=== PATIENT | male | born 1940 | race Caucasian/White ===

== ENCOUNTER 2018-09-08 19:25 | Inpatient (IN) | payer MEDICARE ==
[~2018-09-08] VITALS: Ht 175.3 cm; Wt 65.8 kg
--- NOTE | 2018-09-08 19:29 | NUR ---
Pt bib private ambulance from [facility] for medical clearance and admission into MHU. Pt on 5150 hold gravely disabled. AAOX3, however thinks the president is talking to him. Safety precautions implemented. 1:1 sitter (security) at bedside for safety. Pt belongings placed in nursing station.
--- NOTE | 2018-09-08 20:17 | NUR ---
Pt is medically cleared by YUNIOR Hope MD.
--- NOTE | 2018-09-08 20:31 | NUR ---
Pt. admitted to MHU, under care of Dr. Singh/Franko Patel NP. Diagnosis: Psychosis. Belongs List completed. MRSA swab done.
[2018-09-08 21:10] VITALS: BP 136/70
[2018-09-08] MEDS ORDERED: MAGNESIUM HYDROXIDE 30 ML LIQUID UDC PO PRN (21:45)
[2018-09-08] MEDS ORDERED: MAG HYDROX/AL HYDROX/SIMETH 30 ML LIQUID UDC PO PRN (21:45)
[2018-09-08] MEDS ORDERED: OLANZAPINE 10 MG VIAL IM STA (21:54)
--- NOTE | 2018-09-09 00:41 | NUR ---
ADMISSION NOTE:HAVING 78 YRS OLD MALE WAS ADMITTED TO MHU AFTER MEDICALLY CLEARED FROM ER.HE IS ON 72 HOLD FOR GD-PARANOID DELUSION THOUGHTS THAT PEOPLE WERE TRYING TO KILL HIM AND PRESIDENT VANIA HADCALLED HIM AND WAS SENDING SOMEONE TO PICK HIM UP.PT HAS BEEN OUT HIDING FOR THE PAST 4-5 DAYS AND WAS FOUND SLEEPING IN THE LOBBY OF [facility].A/O X 1-2.SL.SHOSHONE-PAIUTE AND SL.CLOUDY ON BOTH EYES BUT PT DECLINED HIS MEDICALHX..ANXIOUS, RESTLESS,SUSPICIOUS AND WANTED TO LEAVE TO GO BACK TO [facility] BECAUSE HE HAS THE BED THERE TO SLEEP AND HE NEEDS TO GO TO THE [place] IN THE MORNING TO FLY.PRESLATISHA CARO IS WAITING TO MEET HIM THEN.HE STARTED PACING/WANDERING INTO THE THE NURSING STATION/REPORT ROOM LOOKING FOR THE SATELLITE TO COMMUNICATE WITH PRESIDENT CARO AND TO GET HIS CLOTHES SO HE CAN LEAVE.SECURITY WAS CALLED AND NOTIFIED REGARDING OF ADMISSION AND HIS BEHAVIOR WITH NEW ORDERS-CARRIED OUT.IM MED WAS GIVEN X1 ORDER.ABLE TO CALM DOWN BUT STILL TALKING ABOUT LEAVING TO MEET PRESIDENT CARO.HAYLEY.REALITYORIENTATION, REDIRECTION AND SETTING LIMITS NEEDED WILL CONTINUE TO MONITOR FOR ANY CHANGES.
[2018-09-09] MEDS: LORAZEPAM 0.5 MG TABLET PO PRN ×3 (04:29→13:17)
--- NOTE | 2018-09-09 04:34 | NUR ---
GPS: PATIENT IS VERY AGITATED. ATIVAN 0.5 MG PO GIVEN.
[2018-09-09 07:30] VITALS: BP 113/64
[2018-09-09] MEDS: ACETAMINOPHEN 325 MG TABLET PO PRN ×2 (08:28→16:16)
--- NOTE | 2018-09-09 09:29 | NUR ---
Reached out to Arben Avila, who is the patients son. Wanted to follow up on vaccinations. Waiting for return to call,
[2018-09-09] MEDS: BENZTROPINE MESYLATE 0.5 MG TABLET PO SCH ×2 (11:18→16:14)
[2018-09-09] MEDS: risperiDONE-M 0.5 MG TAB.RAPDIS PO SCH ×2 (11:18→16:14)
[2018-09-09] MEDS: DIVALPROEX SPRINKLE 125 MG CAP.SPRINK PO SCH ×2 (12:07→16:14)
--- NOTE | 2018-09-09 13:39 | NUR ---
Patient is still presenting with delusions and hallucinations. Patient continues to verbalizes initiative to meet with President Celso. Patient intermittently sleeps and garbles during his sleep. patient denies intentions of being a danger to others and self. Patient continues to show anxiety and paranoid delusions of conspiracy. Will continue to monitor the patient closely.
--- NOTE | 2018-09-09 14:31 | NUR ---
GPS: Nursing Notes: Thought Disorder: Patient is awake and responding to his name, resistant with nursing care, redirected and reoriented during shift to reality, needs a lot of prompting with ADL's, resistant with nursing care, believes that he is a bezel cutter of President Dameon Houston [employer], believes that Dameon Houston is going to kill him, episodes of mumbling to self and shaking and saluting with his hand to the air with his eyes closed, responding to internal stimuli, disoriented, disorganized, stating "I want to go home....My car is outside... I have millions of dollars in my backpack..", unkempt appearance, refusing to shower, poor anger management, poor impulse control, unable to formulate a viable plan for self care, continue with treatment plan.
[2018-09-09 15:18] VITALS: BP 92/56
--- NOTE | 2018-09-09 18:02 | NUR ---
GPS: Patient has a 1:1 sitter at beside due to DTS and DTO. Patient has had delusions and presenting with auditory and visual hallucinations. Patient did not sleep the night before and was able to get some sleep through out the shift. Patient is compliant with medical treatment. patient is continent and able to go to the bathroom at libery. Patient has been oriented to the unit but still demonstrates confusion. Will continue to monitor closely and endorse plan of care to shift coordinator.
[2018-09-09] MEDS: TEMAZEPAM 7.5 MG CAPSULE PO PRN (21:03)
[2018-09-09 22:26] VITALS: BP 120/71
[2018-09-10 07:48] LABS: BASOPHILS % (AUTO) 0.2 % (0.0-2.0); EOSINOPHILS # (AUTO) 0.3 K/uL (0.0-0.7); EOSINOPHILS % (AUTO) 3.5 % (0.0-7.0); HEMATOCRIT 41.3 % (36.7-47.1); HEMOGLOBIN 13.5 g/dL (12.5-16.3); LYMPHOCYTES # (AUTO) 1.5 K/uL (20.0-40.0); LYMPHOCYTES % (AUTO) 21.1 % (20.5-51.5); MEAN CORPUSCULAR HEMOGLOBIN 27.1 uug (23.8-33.4); MEAN CORPUSCULAR HGB CONC 33 g/dL (32.5-36.3); MEAN CORPUSCULAR VOLUME 82.7 fL (73.0-96.2); MONOCYTES # (AUTO) 0.6 K/uL (2.0-10.0); MONOCYTES % (AUTO) 8.2 % (0.0-11.0); NEUTROPHILS # (AUTO) 4.9 K/uL (1.8-8.9); PLATELET COUNT (AUTO) 252 K/uL (152-348); RED BLOOD CELL COUNT(AUTO) 4.99 MIL/uL (4.06-5.63); WHITE BLOOD COUNT (AUTO) 7.3 K/uL (3.6-10.2)
[2018-09-10 08:02] VITALS: BP 117/60
[2018-09-10 08:09] LABS: THYROID STIMULATING HORMONE 0.721 mIU/mL (0.358-3.740)
[2018-09-10] MEDS: ACETAMINOPHEN 325 MG TABLET PO PRN ×2 (08:14→17:18)
[2018-09-10] MEDS: LORAZEPAM 0.5 MG TABLET PO PRN (08:14)
[2018-09-10 08:28] LABS: ALANINE AMINOTRANSFERASE 31 U/L (16-63); ALKALINE PHOSPHATASE 61 U/L (50-136); ASPARTATE AMINOTRANSFERASE 46 U/L (15-37); BILIRUBIN,TOTAL 0.6 mg/dL (0.2-1.0); CARBON DIOXIDE 30 mmol/L (21-32); CHLORIDE 101 mmol/L (98-107); CREATININE 0.8 mg/dL (0.6-1.3); GLUCOSE 113 mg/dL (74-106); MAGNESIUM 2.1 mg/dL (1.8-2.4); POTASSIUM 4.5 mmol/L (3.5-5.1); TOTAL PROTEIN, SERUM 7.4 g/dL (6.4-8.2); UREA NITROGEN, BLOOD 16 mg/dL (7-18)
[2018-09-10] MEDS: DIVALPROEX SPRINKLE 125 MG CAP.SPRINK PO SCH ×3 (08:31→17:17)
[2018-09-10] MEDS: risperiDONE-M 0.5 MG TAB.RAPDIS PO SCH ×3 (08:31→17:17)
[2018-09-10] MEDS: BENZTROPINE MESYLATE 0.5 MG TABLET PO SCH ×2 (08:31→17:17)
[2018-09-10 15:29] VITALS: BP 90/51
--- NOTE | 2018-09-10 15:50 | NUR ---
Initial Discharge Plan: Patient is a 78 year old male who currently lives alone in his home [[facility] [id number]]. Per patient he would like to return to his home when he is ready. However, according to patient son, Sven [[phone]], it is "unsafe" for patient to return as he believes patient is unable to take care of himself. According to Sven, patient kitchen is under 3-4 feet of water and growing mold because patient refuses to have the leaky pipe fixed. Sven also reports that patient wanders into his neighbors homes. Patient may need SNF placement when ready to discharge. foundry worker will continue to collaborate with patient, patient son, and MD on a safe and proper discharge.
--- NOTE | 2018-09-10 16:51 | NUR ---
APS REPORT: farmworker grain completed and submitted an APS report to [facility] [[phone]] for self-neglect after receiving information that patient was living in hazardous and unsafe living conditions. Report was made to Tomas Roe and faxed [[phone]] to agency. Successful fax return and copy of report have been placed in patient chart.
[2018-09-10 20:00] VITALS: BP 136/79
[2018-09-10] MEDS: ATORVASTATIN 10 MG TABLET PO SCH (20:03)
[2018-09-10] MEDS: TEMAZEPAM 7.5 MG CAPSULE PO PRN (20:25)
--- NOTE | 2018-09-10 20:46 | NUR ---
Rec't pt in his room, sitting up in chair with 1:1 sitter at side for safety. Verbally responsive. Continues to have delusions of Trump coming to pick him up. Took all due meds with assist. Taking PO fluids well. No s/s of acute distress. All safety precautions in place at this time. Will continue to monitor.
--- NOTE | 2018-09-11 06:28 | NUR ---
Pt in bed awake. Slept x6.15 hrs during shift. Had x1 episode of walking with assist to the his doorway and verbalizing that he only works for Trump and that Trump is coming to pick him up. Reoriented to reality as needed. 1:1 sitter at bedside. Offered shower but became agitated during attempt. All safety precautions in place at this time. Will endorse to oncoming shift.
[2018-09-11 07:30] VITALS: BP 130/63
[2018-09-11] MEDS: risperiDONE-M 0.5 MG TAB.RAPDIS PO SCH ×3 (08:03→16:04)
[2018-09-11] MEDS: DIVALPROEX SPRINKLE 125 MG CAP.SPRINK PO SCH ×3 (08:03→16:04)
[2018-09-11] MEDS: BENZTROPINE MESYLATE 0.5 MG TABLET PO SCH ×2 (08:03→16:04)
[2018-09-11] MEDS: LORAZEPAM 0.5 MG TABLET PO PRN ×3 (08:05→21:12)
[2018-09-11 16:00] VITALS: BP 123/69
[2018-09-11 20:33] VITALS: BP 118/61
[2018-09-11] MEDS: ATORVASTATIN 10 MG TABLET PO SCH (21:12)
--- NOTE | 2018-09-12 03:22 | NUR ---
Patient first observed in his room, sitting up in chair with 1:1 sitter at side for safety. Verbally responsive. Continues to have delusions requires continuous redirection, appeared paranoid. Patient compliant with medication with staff assist. Taking PO fluids well. No s/s of acute distress. All safety precautions in place at this time. Will continue to monitor as well as follow plan of care.
[2018-09-12 07:30] VITALS: BP 117/53
[2018-09-12] MEDS: DIVALPROEX SPRINKLE 125 MG CAP.SPRINK PO SCH ×3 (09:06→17:11)
[2018-09-12] MEDS: risperiDONE-M 0.5 MG TAB.RAPDIS PO SCH ×3 (09:07→17:12)
[2018-09-12] MEDS: BENZTROPINE MESYLATE 0.5 MG TABLET PO SCH ×2 (09:09→17:11)
--- NOTE | 2018-09-12 12:30 | NUR ---
Gps/Senior Principal- Remains with 1:1 Nursing supervision for safety.Complaint with routine medications administered with apple sauce. Son was in to visit during lunch time , but noted refused to leave even after visiting hours over.Acoustical Tile Carpenters Supervisor was called and informed, hesitant to leave but was able to comply after.
[2018-09-12 16:00] VITALS: BP 108/55
[2018-09-12 20:04] VITALS: BP 122/65
[2018-09-12] MEDS: LORAZEPAM 0.5 MG TABLET PO PRN (20:14)
[2018-09-12] MEDS: ATORVASTATIN 10 MG TABLET PO SCH (20:15)
[2018-09-13] MEDS: TEMAZEPAM 7.5 MG CAPSULE PO PRN (00:33)
[2018-09-13 07:08] LABS: BASOPHILS % (AUTO) 0.3 % (0.0-2.0); EOSINOPHILS # (AUTO) 0.3 K/uL (0.0-0.7); EOSINOPHILS % (AUTO) 5.5 % (0.0-7.0); HEMATOCRIT 37.8 % (36.7-47.1); HEMOGLOBIN 12.3 g/dL (12.5-16.3); LYMPHOCYTES # (AUTO) 1.4 K/uL (20.0-40.0); LYMPHOCYTES % (AUTO) 25.2 % (20.5-51.5); MEAN CORPUSCULAR HGB CONC 33 g/dL (32.5-36.3); MEAN CORPUSCULAR VOLUME 82.7 fL (73.0-96.2); MONOCYTES # (AUTO) 0.5 K/uL (2.0-10.0); MONOCYTES % (AUTO) 8.9 % (0.0-11.0); NEUTROPHILS # (AUTO) 3.4 K/uL (1.8-8.9); NEUTROPHILS % (AUTO) 60.1 % (38.5-71.5); PLATELET COUNT (AUTO) 243 K/uL (152-348); RED BLOOD CELL COUNT(AUTO) 4.57 MIL/uL (4.06-5.63); WHITE BLOOD COUNT (AUTO) 5.6 K/uL (3.6-10.2)
[2018-09-13 07:28] LABS: ALANINE AMINOTRANSFERASE 21 U/L (16-63); ALKALINE PHOSPHATASE 56 U/L (50-136); ASPARTATE AMINOTRANSFERASE 16 U/L (15-37); BILIRUBIN,TOTAL 0.6 mg/dL (0.2-1.0); CARBON DIOXIDE 29 mmol/L (21-32); CHLORIDE 101 mmol/L (98-107); CREATININE 0.8 mg/dL (0.6-1.3); GLUCOSE 101 mg/dL (74-106); POTASSIUM 4.4 mmol/L (3.5-5.1); TOTAL PROTEIN, SERUM 6.8 g/dL (6.4-8.2); UREA NITROGEN, BLOOD 18 mg/dL (7-18)
[2018-09-13 07:30] VITALS: BP 113/53
[2018-09-13 07:44] LABS: VALPROIC ACID 29 ug/mL (50-100)
[2018-09-13] MEDS: DIVALPROEX SPRINKLE 125 MG CAP.SPRINK PO SCH ×4 (08:00→20:33)
[2018-09-13] MEDS: BENZTROPINE MESYLATE 0.5 MG TABLET PO SCH ×2 (08:00→16:02)
[2018-09-13] MEDS: risperiDONE-M 0.5 MG TAB.RAPDIS PO SCH ×3 (08:00→16:02)
[2018-09-13 20:05] VITALS: BP 128/69
[2018-09-13] MEDS: ATORVASTATIN 10 MG TABLET PO SCH (20:33)
--- NOTE | 2018-09-14 05:36 | NUR ---
Patient was calm and cooperative t/o shift. Vital signs stable. Med compliant. Slept t/o shift. No behavioral issues. All meds given as ordered. All needs met.
[2018-09-14 07:30] VITALS: BP 116/48
[2018-09-14] MEDS: risperiDONE-M 0.5 MG TAB.RAPDIS PO SCH ×3 (08:04→16:52)
[2018-09-14] MEDS: DIVALPROEX SPRINKLE 125 MG CAP.SPRINK PO SCH ×4 (08:04→21:01)
[2018-09-14] MEDS: BENZTROPINE MESYLATE 0.5 MG TABLET PO SCH ×2 (08:05→16:52)
[2018-09-14] MEDS: LORAZEPAM 0.5 MG TABLET PO PRN ×2 (09:34→13:05)
[2018-09-14] MEDS: ACETAMINOPHEN 325 MG TABLET PO PRN (12:46)
[2018-09-14 16:43] VITALS: BP 119/52
--- NOTE | 2018-09-14 17:49 | NUR ---
Found patient lying on the floor in the patients room. Patient stated he slipped because of his slippers. Assess the patient. Vital signs are as follows: BP: 124/60, HR: 101, SpO2: 99%. Patient denies any pain or discomfort at this time. Patient has been placed near the nursing station to be closely monitored. Patient is sitting comfortably in neptali chair and eating dinner. WILDLIFE PHOTOGRAPHER Hannah Beaulieu has been notified and has no new orders. Hannah Beaulieu will come and see the patient tomorrow.
--- NOTE | 2018-09-14 18:00 | NUR ---
Dr. Cruz has been notified and has placed an order for 1:1 sitter. Senior Windows Systems Engineer has also been notified of the event.
--- NOTE | 2018-09-14 18:26 | NUR ---
dr. street order 1:1 sitter for safety, continue to monitor patient safety. Patient has a steady gait and PT evaluation for status post assessment.
--- NOTE | 2018-09-14 18:37 | NUR ---
Patient is resting in neptali chair near nursing station. Patient had a fall incident today. patient is stable and vital signs are within normal limits. Patient is calm and cooperative with medication adminstration and medical treatment. Patient continues to have auditory and visual delusions. patient has fixed thoughts about meeting with anoop medina. patient needs to be reoriented and directed when patient tries to leave the unit. Will continue to monitor closely and endorse plan of care to night shift manager nurse
[2018-09-14 20:11] VITALS: BP 93/48
[2018-09-14] MEDS: ATORVASTATIN 10 MG TABLET PO SCH (21:01)
--- NOTE | 2018-09-15 06:14 | NUR ---
GPS: Remain calm and cooperative with medications and care. took shower this morning. Slept 9:30 hrs during shift. Reoriented to reality as needed. 1:1 sitter at bedside. All safety precautions in place at this time. continue monitor for safety.
[2018-09-15 07:30] VITALS: BP 145/70
[2018-09-15] MEDS: risperiDONE-M 0.5 MG TAB.RAPDIS PO SCH ×2 (08:17→12:25)
[2018-09-15] MEDS: BENZTROPINE MESYLATE 0.5 MG TABLET PO SCH ×2 (08:17→17:09)
[2018-09-15] MEDS: DIVALPROEX SPRINKLE 125 MG CAP.SPRINK PO SCH ×4 (08:17→20:20)
[2018-09-15] MEDS: LORAZEPAM 0.5 MG TABLET PO PRN ×3 (08:17→16:53)
[2018-09-15 16:00] VITALS: BP 111/66
[2018-09-15] MEDS: ACETAMINOPHEN 325 MG TABLET PO PRN (17:09)
--- NOTE | 2018-09-15 18:36 | NUR ---
GPS: patient remains in the same behavior with auditory and visual hallucinations. patient has episode of non compliance with medication administration. Patient believes he should not be in this place and wants to leave to see Dameon Houston. Patient needs repetitive redirecting and reorientation. Patient will be monitored continuously./ 1:1 sitter is still at bedside
[2018-09-15] MEDS: ATORVASTATIN 10 MG TABLET PO SCH (20:21)
[2018-09-15 20:26] VITALS: BP 115/62
[2018-09-16 00:38] LABS: *BILIRUBIN,URIN NEGATIVE (NEGATIVE); *BLOOD, URINE NEGATIVE (NEGATIVE); *CLARITY,URINE CLEAR (CLEAR); *COLOR,URINE YELLOW (YELLOW); *KETONES,URINE TRACE (NEGATIVE); *UROBILINOGEN,URINE 0.2 E.U./dl (NORMAL); LEUKOCYTE ESTERASE ,URINE NEGATIVE (NEGATIVE); NITRITE, URINE NEGATIVE (NEGATIVE); UGLUCOSE NEGATIVE (NEGATIVE)
[2018-09-16 00:42] LABS: BACTERIA,URINE NONE SEEN /HPF (NONE SEEN); MUCUS,URINE FEW /LPF (0-FEW); RBC,URINE 0-3 /HPF (0-3); SQUAMOUS EPITHELIAL CELL,UR FEW /HPF (NONE SEEN); WBC,URINE 0-3 /HPF (0-3)
--- NOTE | 2018-09-16 06:03 | NUR ---
GPS: Remain calm and cooperative with medications. Assisted with adl's. Continue on 1:1 sitter @ bedside for safety. slept only 1 hrs through the night refused to take sleeping meds. assisted with adl's. continue plan of care. Addendum: 09/16/18 at 0631 by RAMYA HAQUE LVN PATIENT SLEPT 1HRS 15 MINUTES THROUGH THE NIGHT. NOT ONLY 1 HRS.
[2018-09-16 07:30] VITALS: BP 114/65
[2018-09-16] MEDS: DIVALPROEX SPRINKLE 125 MG CAP.SPRINK PO SCH ×4 (09:01→20:31)
[2018-09-16] MEDS: BENZTROPINE MESYLATE 0.5 MG TABLET PO SCH ×2 (09:01→16:17)
[2018-09-16] MEDS: risperiDONE-M 0.5 MG TAB.RAPDIS PO SCH ×2 (09:01→16:17)
[2018-09-16] MEDS: ACETAMINOPHEN 325 MG TABLET PO PRN ×2 (09:02→16:17)
[2018-09-16] MEDS: LORAZEPAM 0.5 MG TABLET PO PRN (12:34)
[2018-09-16 15:28] VITALS: BP 100/56
--- NOTE | 2018-09-16 16:07 | NUR ---
GPS: Nursing Notes: Thought Disorder: Patient is awake and responding to his name, responding to internal stimuli by mumbling to unseen other and grabbing the air, redirected and reoriented to reality during shift, believes that Dameon Houston is his friend, believes that he is outside in the parking lot waiting for him, gets easily irritable when redirected, A/Ox1, confused, disorganized, an episode of sticking his finger in his anus, stated, "It is okay.. I wanted to fart..", redirected, but continue with impaired judgment, unable to formulate a viable plan for self care, continue with 1:1 sitter for safety, slightly unsteady gait, continue with treatment plan.
--- NOTE | 2018-09-16 18:34 | NUR ---
EYES CLOSED, UP IN FREDY CHAIR. EATING WELL. DRINKING WELL. SITTER AT BEDSIDE. PT CALM AND COOPERATIVE AT THIS TIME. WILL CONT TO MONITOR.
[2018-09-16] MEDS: ATORVASTATIN 10 MG TABLET PO SCH (20:31)
[2018-09-16 20:38] VITALS: BP 109/58
[2018-09-17] MEDS: LORAZEPAM 0.5 MG TABLET PO PRN (02:38)
--- NOTE | 2018-09-17 02:40 | NUR ---
GPS: Patient very agitated. stated i want go home. pushing staff banging bedside table. ativan 0.5 mg po given for agitation.
--- NOTE | 2018-09-17 06:24 | NUR ---
GPS: Patient was calm and cooperative with medications and acre. Vital signs stable. Med compliant. Slept 7 hrs through the night. agitation x1 noted prn given and effective. No behavioral issues. All meds given as ordered. All needs met. continue monitoring for safety via 1:1 sitter @ bedside all the time.
[2018-09-17 07:06] LABS: BASOPHILS % (AUTO) 0.2 % (0.0-2.0); EOSINOPHILS # (AUTO) 0.2 K/uL (0.0-0.7); EOSINOPHILS % (AUTO) 3.2 % (0.0-7.0); HEMATOCRIT 40.1 % (36.7-47.1); HEMOGLOBIN 13.4 g/dL (12.5-16.3); LYMPHOCYTES # (AUTO) 1.2 K/uL (20.0-40.0); LYMPHOCYTES % (AUTO) 19.8 % (20.5-51.5); MEAN CORPUSCULAR HEMOGLOBIN 27.4 uug (23.8-33.4); MEAN CORPUSCULAR HGB CONC 34 g/dL (32.5-36.3); MEAN CORPUSCULAR VOLUME 81.8 fL (73.0-96.2); MONOCYTES # (AUTO) 0.5 K/uL (2.0-10.0); MONOCYTES % (AUTO) 8.2 % (0.0-11.0); NEUTROPHILS # (AUTO) 4.1 K/uL (1.8-8.9); NEUTROPHILS % (AUTO) 68.6 % (38.5-71.5); PLATELET COUNT (AUTO) 244 K/uL (152-348)
[2018-09-17 07:19] LABS: ALANINE AMINOTRANSFERASE 28 U/L (16-63); ALKALINE PHOSPHATASE 64 U/L (50-136); ASPARTATE AMINOTRANSFERASE 10 U/L (15-37); BILIRUBIN,TOTAL 0.5 mg/dL (0.2-1.0); CARBON DIOXIDE 29 mmol/L (21-32); CHLORIDE 103 mmol/L (98-107); CREATININE 0.8 mg/dL (0.6-1.3); GLUCOSE 97 mg/dL (74-106); POTASSIUM 4.6 mmol/L (3.5-5.1); TOTAL PROTEIN, SERUM 7.2 g/dL (6.4-8.2); UREA NITROGEN, BLOOD 15 mg/dL (7-18)
[2018-09-17 07:30] VITALS: BP 111/62
[2018-09-17] MEDS: risperiDONE-M 0.5 MG TAB.RAPDIS PO SCH ×2 (08:04→16:26)
[2018-09-17] MEDS: DIVALPROEX SPRINKLE 125 MG CAP.SPRINK PO SCH ×4 (08:04→20:33)
[2018-09-17] MEDS: BENZTROPINE MESYLATE 0.5 MG TABLET PO SCH ×2 (08:04→16:27)
--- NOTE | 2018-09-17 11:28 | NUR ---
Firearms Report: aircraft worker completed and submitted a [employer] firearms report for a 5250 GD certification.
[2018-09-17] MEDS: ACETAMINOPHEN 325 MG TABLET PO PRN (12:28)
--- NOTE | 2018-09-17 12:53 | NUR ---
GPS: Nursing Notes: Thought Disorder: Patient is awake and responding to his name, internally preoccupied, responding to internal stimuli by mumbling and talking to unseen others with his eyes closed, when asked who he is talking to: Stated, "I am a stock holder..", continue with 1:1 sitter for safety, confused, disoriented, impaired judgment, redirected and reoriented to reality during shift, believes that Dameon Houston is his friend, unable to formulate a viable plan for self care, continue with treatment plan.
--- NOTE | 2018-09-17 16:16 | NUR ---
Patient continue on 1:1 sitter. Continue on pain management with good effect. no behavioral problem noted. will continue monitor
[2018-09-17 16:54] VITALS: BP 103/58
[2018-09-17] MEDS: ATORVASTATIN 10 MG TABLET PO SCH (20:33)
[2018-09-17 22:19] VITALS: BP 111/60
--- NOTE | 2018-09-18 05:52 | NUR ---
GPS: Remain calm and cooperative with medications and acre. Vital signs stable. Med compliant. Slept 7:30 hrs through the night. patient still delusional at time. No agitation noted. All meds given as ordered. All needs met. continue monitoring for safety via 1:1 sitter @ bedside all the time.
[2018-09-18 07:30] VITALS: BP 122/69
[2018-09-18] MEDS: BENZTROPINE MESYLATE 0.5 MG TABLET PO SCH ×2 (08:07→16:40)
[2018-09-18] MEDS: DIVALPROEX SPRINKLE 125 MG CAP.SPRINK PO SCH ×3 (08:07→16:40)
[2018-09-18] MEDS: risperiDONE-M 0.5 MG TAB.RAPDIS PO SCH ×2 (08:08→16:40)
--- NOTE | 2018-09-18 15:54 | NUR ---
GROUP NOTE: Group topic was focused on how to talk with your doctor and advocate for yourself Subjective: "No, thank you." Objective: Patient did not express interest in attending group and chose to stay in his room. Assessment: Patient presented with euphoric mood and garbled speech. Patient needs encouragement to socialize and engage with peers. Plan: fabric worker fitter will continue to encourage group attendance as scheduled. fabric worker fitter will continue to provide support to the patient to encourage participation.
[2018-09-18 16:00] VITALS: BP 127/63
--- NOTE | 2018-09-18 18:13 | NUR ---
Patient is alert and oriented x1. Patient has been in room and neptali chair with 1:1 sitter. patient is compliant with medication and medical treatment. Patient denies any pain or discomfort at this time. Patient continues to have auditory hallucinations about "being the president and Benny medina is no longer the president". Will continue to monitor and endorse plan of care to fast food shift supervisor.
[2018-09-18] MEDS ORDERED: DIVALPROEX SPRINKLE 125 MG CAP.SPRINK PO SCH (21:00)
[2018-09-18] MEDS: ATORVASTATIN 10 MG TABLET PO SCH (21:13)
[2018-09-18 21:23] VITALS: BP 91/56
--- NOTE | 2018-09-19 05:41 | NUR ---
Patient is alert and oriented x1 and denies any pain or discomfort at this time. Patient remained with 1-1 sitter. Patient is compliant with all medications and medical treatments. Medication given as ordered. Safety measures maintained. Will continue to monitor and endorse plan of care to oncoming nurse.
[2018-09-19 07:30] VITALS: BP 111/64
[2018-09-19] MEDS: DIVALPROEX SPRINKLE 125 MG CAP.SPRINK PO SCH ×2 (08:45→12:43)
[2018-09-19] MEDS: risperiDONE-M 0.5 MG TAB.RAPDIS PO SCH (08:46)
[2018-09-19] MEDS: BENZTROPINE MESYLATE 0.5 MG TABLET PO SCH (08:46)
--- NOTE | 2018-09-19 12:43 | NUR ---
DISCHARGE NOTE: Patient will be discharged to [facility] [[id number] [place] [address]; ] and transportation will be provided by ambulance at 3:00pm. Please arrange ambulance transportation for this patient. Patient is alert and oriented x1, denies SI/HI, and is aware and agreeable with discharge plans. Patient son, Sven Avila [phone]], has been notified of patient discharge and is agreeable with plan. Patient will follow-up with Dr. Winters (logistics supply officer) and Dr. Singh (psychiatrist) at the facility. Patient has been provided with outpatient mental health resources to [facility] [ ], [facility] Gibson [ ], and the National Suicide Prevention Lifeline [ ].
[2018-09-19 16:00] VITALS: BP 96/37
--- NOTE | 2018-09-19 16:00 | NUR ---
1400 Called in report to [facility] spoke with VALENCIA Abreu who will be admitting this patient. DOCTOR CHIROPRACTIC staff informed regarding medications to continue upon patient hospital discharged, pschiatrist & press hand supervisor who will follow the patient. Also informed that patient a teresa visa card, check book and house horowitz will be given to ambulance personnel name, Subhash Moreno with instruction to give it to afternoon RN call centre supervisor, Bella Abreu am LVN instruction. 1605 Patient discharged to [facility] via ambulane stable condition, denies SI/ HI. no delusion. No a/v hallucination noted.
--- NOTE | 2018-09-19 17:26 | NUR ---
Pt is being discharged to [facility] via Ambulance. Pt is aware and willing to go. Pt is calm and cooperative. VS are stable. Pt is A/O x 2. All belongings returned. Report was called in to the facility.
== END 2018-09-19 16:25 | DRG 885 ==
LOC: ER 19:27 → GPS 20:36
PROVIDERS: ADMIT Psychiatry & Neurology Psychosomatic Medicine; ATTEND Internal Medicine
DX: F31.64 Bipolar disorder, current episode mixed, severe, with psychotic features (principal); E44.1 Mild protein-calorie malnutrition; E78.5 Hyperlipidemia, unspecified; I67.2 Cerebral atherosclerosis; Z68.21 Body mass index [BMI] 21.0-21.9, adult; F03.90 Unspecified dementia, unspecified severity, without behavioral disturbance, psychotic disturbance, mood disturbance, and anxiety; R73.9 Hyperglycemia, unspecified
CPT/HCPCS: 36415; 70450; 80164; 83735; 84100; 84443; 85025; 87086; 97110; 97116; 97530; A4663; J2358